=== PATIENT | male | born 1975 | race Caucasian/White ===

== ENCOUNTER 2016-10-27 11:37 | Emergency (ER) | payer BC, OTHER ==
[~2016-10-27] VITALS: Ht 177.8 cm; Wt 115.0 kg
[~2016-10-27 11:37] MED LIST: AMLO-110 PO; GLC/500 PO; INSDGIPEN SC; LISI40TA PO; NVLGIPEN SC; OMG3 PO; TRC145 PO
[2016-10-27 11:39] VITALS: TEMP 36.6; Ht 177.8 cm; Wt 115.0 kg
[2016-10-27] MEDS ORDERED: LPT/40 PO (12:08)
[2016-10-27] MEDS ORDERED: OXYC-57 PO (12:08)
[2016-10-27] MEDS ORDERED: KETOROLAC TROMETHAMINE 60 MG/2 ML VIAL IM STA (12:26)
[2016-10-27] MEDS ORDERED: CYCLOBENZAPRINE HCL 10 MG TAB PO STA (12:26)
[2016-10-27] MEDS ORDERED: KETOROLAC TROMETHAMINE 30 MG/ML VIAL ONE (12:40)
--- NOTE | 2016-10-27 13:30 | DIAGNOSTIC IMAGING REPORT ---
THORACIC SPINE 3 VIEWS CLINICAL HISTORY: Thoracic back pain. FINDINGS: AP, lateral, and swimmer's views of the thoracic spine are obtained. No prior studies are available for comparison at the time of dictation. The skeletal structures are well mineralized. Vertebral body height and alignment are maintained throughout the thoracic spine. There is no radiographic evidence of fracture or malalignment. Tiny anterior osteophytes are seen throughout. The disc spaces appear preserved. The transverse processes and pedicles are grossly intact as seen on the frontal view. The imaged lung parenchyma appears clear. IMPRESSION: No acute bony abnormality is seen involving the thoracic spine. Electronically signed by: Yadiel Heart M.D. 10/27/2016 1:28 PM Dictated Date/Time: 10/27/2016 1:27 PM
--- NOTE | 2016-10-27 13:32 | DIAGNOSTIC IMAGING REPORT ---
CERVICAL SPINE 7 VIEWS CLINICAL HISTORY: Neck pain. FINDINGS: AP, lateral, bilateral oblique, swimmer's, [place], and odontoid views of the cervical spine are obtained. No prior studies are available for comparison at the time of dictation. The skeletal structures are well mineralized. There is no radiographic evidence of fracture or subluxation. The odontoid process and lateral masses appear intact on the open mouth view. The spinolaminar line is preserved. Vertebral body height and alignment are maintained. C7 is best seen on the swimmer's view. Large anterior osteophytes are seen at C6-C7. There is straightening of cervical lordosis with mild reversal centered at C6-C7. The spinous processes appear intact. The intervertebral disc spaces are normal. Small posterior disc osteophyte complexes at C5-C6 and C6-C7 may contribute to mild acquired compromise of the central canal. There is no evidence of neuroforaminal stenosis on the oblique views. The prevertebral soft tissues are within normal limits. Visualized apical lung parenchyma appears clear. IMPRESSION: 1. No acute bony abnormality is seen involving the cervical spine. 2. Mild spondylotic change is noted in the lower cervical spine as discussed above. Electronically signed by: Yadiel Heart M.D. 10/27/2016 1:30 PM Dictated Date/Time: 10/27/2016 1:29 PM
[2016-10-27] MEDS ORDERED: OXYC1TAB3 PO (14:20)
[2016-10-27] MEDS ORDERED: CYCL10TA6 PO (14:20)
[2016-10-27 14:42] VITALS: BP 97/68; PULSE 68; O2SAT 98
--- NOTE | 2016-10-27 18:55 | EMERGENCY ROOM VISIT NOTE ---
History Report prepared by Martha: Cecily Prieto Under the Supervision of: Dr. Yehuda Zavala M.D. First contact with patient: 12:15 Chief Complaint: NECK PAIN Stated Complaint: BACK,NECK PAIN History of Present Illness The patient is a 41 year old male who presents to the Emergency Room with complaints of worsening neck pain for the past two days. The patient states that two days ago he was lying on his stomach on the couch. He turned quickly to look at something and felt a pinch in his back by his left shoulder blade. 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 About 3-4 hours later the patient developed pain in his upper back that radiates across his shoulder blades, into his neck, and down his arms bilaterally. His pain is not worse on one side. Lying flat on his back helps to alleviate his pain, while standing and movement exacerbate his pain. The patient rates his pain as a 2/10 when he is lying flat and a 7/10 when he is standing. He denies any numbness, tingling, fever, abdominal pain, and loss of control of his bowels or bladder. He has not been dropping anything or weakness in his arms or legs. He denies any recent trauma or other injury to his back. He denies any recent heavy lifting. The patient does not have a history of disc problems. He has been taking ibuprofen for pain. Yesterday he took an oxycodone that he had left over from a previous surgery. He states that this helped to alleviate some of his pain. The patient recently traveled back from [place]. He denies any chest pain, shortness of breath, and leg pain or swelling.. Source of History: patient Onset: 2 days ago Position: neck Symptom Intensity: 7/10 Quality: other (radiating) Timing: worsening Modifying Factors (Worsening): movement, other (standing) Modifying Factors (Relieving): narcotics, other (lying flat) Associated Symptoms: + back pain, No fevers, No chest pain, No SOB, No abdominal pain, No numbness Review of Systems See HPI for pertinent positives & negatives. A total of 10 systems reviewed and were otherwise negative. Past Medical & Surgical Medical Problems: (1) Diabetes mellitus, new onset (2) Diverticulitis (3) Hypertension (4) Kidney stone Surgical Problems: (1) History of appendectomy (2) History of cholecystectomy (3) History of colon resection Family History Cancer Diabetes mellitus Heart disease Hypertension Kidney disease Kidney stones Social History Smoking Status: Never Smoker Alcohol Use: occasionally Marital Status: Housing Status: lives with family Occupation Status: employed Current/Historical Medications Scheduled Amlodipine (Norvasc), 5 MG PO QAM Atorvastatin (Lipitor), 40 MG PO DAILY Cyclobenzaprine Hcl (Flexeril), 1 TAB PO TID Lisinopril (Prinivil), 40 MG PO DAILY Metformin Hcl (Glucophage), 500 MG PO BID Scheduled PRN Oxycodone Ir (Roxicodone Ir), 5 MG PO Q4H PRN for Pain Oxycodone/Acetaminophen 5MG/325MG (Percocet 5MG/325MG), 1 TABLET PO Q6H PRN for Pain Allergies Coded Allergies: No Known Allergies (Unverified , 11/14/15) Physical Exam Vital Signs Date Time Temp Pulse Resp B/P (MAP) Pulse Ox O2 Delivery O2 Flow Rate FiO2 10/27/16 14:42 68 18 97/68 98 10/27/16 13:40 61 18 134/80 95 Room Air 10/27/16 11:39 36.6 92 16 162/105 97 Room Air Physical Exam Constitutional: Vital signs reviewed. Eyes: Pupils are equal round reactive to light. Conjunctiva are noninjected. ENT: Pharynx is clear without erythema or exudate. Mucous membranes are moist. No midline tenderness to the cervical spine. Respiratory: Clear to auscultation bilaterally. Breath sounds are equal bilaterally. Cardiovascular: Regular rate and rhythm. No rubs or gallops. GI: Soft, nondistended and nontender. Bowel sounds are present. Musculoskeletal: No midline tenderness to the thoracic spine. No peripheral edema. No lower extremity tenderness. Integumentary: No cyanosis. Neurological: The patient is awake and alert. Cranial nerves II-XII are intact. Motor is 5 out of 5 all extremities. Sensation is intact to light touch all extremities. Normal speech. No pronator drift. Psychiatric: Normal affect. Medical Decision & Procedures ER Provider Diagnostic Interpretation: Radiology results as stated below per my review and the radiologist's interpretation: THORACIC SPINE 3 VIEWS CLINICAL HISTORY: Thoracic back pain. FINDINGS: AP, lateral, and swimmer's views of the thoracic spine are obtained. No prior studies are available for comparison at the time of dictation. The skeletal structures are well mineralized. Vertebral body height and alignment are maintained throughout the thoracic spine. There is no radiographic evidence of fracture or malalignment. Tiny anterior osteophytes are seen throughout. The disc spaces appear preserved. The transverse processes and pedicles are grossly intact as seen on the frontal view. The imaged lung parenchyma appears clear. IMPRESSION: No acute bony abnormality is seen involving the thoracic spine. Electronically signed by: Yadiel Heart M.D. 10/27/2016 1:28 PM Dictated Date/Time: 10/27/2016 1:27 PM CERVICAL SPINE 7 VIEWS CLINICAL HISTORY: Neck pain. FINDINGS: AP, lateral, bilateral oblique, swimmer's, [place], and odontoid views of the cervical spine are obtained. No prior studies are available for comparison at the time of dictation. The skeletal structures are well mineralized. There is no radiographic evidence of fracture or subluxation. The odontoid process and lateral masses appear intact on the open mouth view. The spinolaminar line is preserved. Vertebral body height and alignment are maintained. C7 is best seen on the swimmer's view. Large anterior osteophytes are seen at C6-C7. There is straightening of cervical lordosis with mild reversal centered at C6-C7. The spinous processes appear intact. The intervertebral disc spaces are normal. Small posterior disc osteophyte complexes at C5-C6 and C6-C7 may contribute to mild acquired compromise of the central canal. There is no evidence of neuroforaminal stenosis on the oblique views. The prevertebral soft tissues are within normal limits. Visualized apical lung parenchyma appears clear. IMPRESSION: 1. No acute bony abnormality is seen involving the cervical spine. 2. Mild spondylotic change is noted in the lower cervical spine as discussed above. Electronically signed by: Yadiel Heart M.D. 10/27/2016 1:30 PM Dictated Date/Time: 10/27/2016 1:29 PM Medications Administered Medications (Trade) Dose Ordered Sig/Rommel Route Start Time Stop Time Status Last Admin Dose Admin Cyclobenzaprine HCl (Flexeril Tab) 10 mg NOW STAT PO 10/27/16 12:26 10/27/16 12:28 DC 10/27/16 12:43 10 MG Ketorolac Tromethamine (Toradol Inj) 30 mg STK-MED ONCE .ROUTE 10/27/16 12:40 10/27/16 12:41 DC 10/27/16 12:44 30 MG ED Course 1215: The patient was evaluated in room A10. A complete history and physical exam was performed. 1226: Toradol 30 mg IM, Flexeril 10 mg PO 1413: I reassessed the patient at this time. He is feeling better and resting comfortably. I discussed the results and treatment plan with the patient. I answered all pertaining that he had. He expressed understanding and verbalized agreement. The patient will be discharged home. Medical Decision This is a 41-year-old male who presents with neck and upper back pain. Differential diagnosis includes strain, cervical disc disease, spinal stenosis, pathologic fracture, compression fracture. I did perform a limited focused review of portions of the patient's old chart on the electronic medical record. The patient has had no recent pertinent visits to this hospital. Medication Reconciliation: I attest that I have personally reviewed the patient' s current medication list. Blood Pressure Screening: Patient was found to have an elevated blood pressure and was referred to their primary doctor for recheck and further treatment. I did evaluate the patient as noted above. The patient is presenting with neck and upper back pain. He has pain rating down his arms. His symptoms seem consistent with cervical radiculopathy. He does not have any motor or sensory deficits. He does not have any chest pain or trouble breathing. I did treat the patient with Flexeril by mouth and Toradol IM. I did order x-rays of the cervical and thoracic spine. I did review the images myself as well as the radiology report as described above. He does have spondylitic disease. I did reassess the patient. He is feeling somewhat better. I did discuss the test results with him. I did recommend follow up with his doctor for further evaluation and likely physical therapy. He was given a prescription for Flexeril and OxyIR. He was given precautions regarding this medication. He is given discharge instructions as outlined below. [place] Drug Monitoring Program Search Results: patient reviewed within database, no issues identified Impression Primary Impression: Cervical radiculopathy Scribe Attestation The scribe's documentation has been prepared under my direct and personally reviewed by me in its entirety. I confirm that the note above accurately reflects all work, treatment, procedures, and medical decision making performed by me. Departure Information Dispostion Home / Self-Care Prescriptions Cyclobenzaprine Hcl (FLEXERIL) 10 Mg Tab 1 TAB PO TID for 7 Days, #21 TAB Prov: Yehuda Zavala M.D. 10/27/16 Oxycodone Ir (Roxicodone Ir) 5 Mg Tab 5 MG PO Q4H Y for Pain, #20 TAB Prov: Yehuda Zavala M.D. 10/27/16 Referrals Rolando Tomlinson D.OGertrude (PCP) Forms HOME CARE DOCUMENTATION FORM, IMPORTANT VISIT INFORMATION, WORK / SCHOOL INSTRUCTIONS Patient Instructions ED Neck Back Pain General, [facility] Additional Instructions You have been examined and treated today on an emergency basis only. This is not a substitute for, or an effort to provide, complete comprehensive medical care. It is impossible to recognize and treat all injuries or illnesses in a single emergency department visit. It is therefore important that you follow up closely with your physician. Call as soon as possible for an appointment. Return for worsening symptoms or if you develop fever, vomiting, abdominal pain , loss of control of your bowel or bladder, numbness or weakness to your arms or legs, numbness to your private area, difficulty urinating, or any other concerning symptoms.
== END 2016-10-27 14:44 | disposition home or self-care (01) ==
LOC: C.EDB 11:38 → C.EDA 14:44
DX: M54.12 Radiculopathy, cervical region (principal); E11.9 Type 2 diabetes mellitus without complications; I10 Essential (primary) hypertension; K57.32 Diverticulitis of large intestine without perforation or abscess without bleeding; Z87.442 Personal history of urinary calculi; Z90.49 Acquired absence of other specified parts of digestive tract; Z98.890 Other specified postprocedural states; Z79.84 Long term (current) use of oral hypoglycemic drugs; Z79.899 Other long term (current) drug therapy; Z80.9 Family history of malignant neoplasm, unspecified; Z83.3 Family history of diabetes mellitus; Z82.49 Family history of ischemic heart disease and other diseases of the circulatory system; Z84.1 Family history of disorders of kidney and ureter